=== PATIENT | male | born 1960 | race Caucasian/White ===

== ENCOUNTER 2018-02-24 15:17 | Observation (INO) | payer SELFPAY ==
[2018-02-24] MEDS ORDERED: ASPIRIN 325 MG TABLET PO ONE (16:07)
--- NOTE | 2018-02-24 16:08 | ER Document Report ---
ED Medical Screen (RME) - General Chief Complaint: Chest Pain Stated Complaint: CHEST PAIN Time Seen by Provider: 02/24/18 16:06 Mode of Arrival: Wheelchair Information source: Patient TRAVEL OUTSIDE OF THE [place] IN LAST 30 DAYS: No - HPI Patient complains to provider of: cp Onset: This afternoon - pt with c/o CP starting earlier today - Related Data Allergies/Adverse Reactions: No Known Allergies Allergy (Unverified 02/24/18 15:18) Physical Exam - Vital signs Vitals: Temp Pulse Resp BP Pulse Ox 98.3 F 120 H 20 143/81 H 99 02/24/18 15:42 02/24/18 15:42 02/24/18 15:42 02/24/18 15:42 02/24/18 15:42 Course - Vital Signs Vital signs: Temp Pulse Resp BP Pulse Ox 98.3 F 120 H 20 143/81 H 99 02/24/18 15:42 02/24/18 15:42 02/24/18 15:42 02/24/18 15:42 02/24/18 15:42
[2018-02-24 17:00] LABS: ABSOLUTE BASOPHILS # (AUTO) 0.1 10^3/uL (0.0-0.2); ABSOLUTE EOSINOPHILS # (AUTO) 0.3 10^3/uL (0.0-0.6); ABSOLUTE LYMPHOCYTES (AUTO) 1.4 10^3/uL (0.5-4.7); ABSOLUTE MONOCYTES (AUTO) 0.6 10^3/uL (0.1-1.4); ABSOLUTE NEUT (AUTO) 5.7 10^3/uL (1.7-8.2); BASOPHILS % (AUTO) 1.1 % (0-2); EOSINOPHILS % (AUTO) 3.2 % (0-6); HEMATOCRIT 45.7 % (37.9-51.0); HEMOGLOBIN 16.2 g/dL (13.5-17.0); LYMPHOCYTES % (AUTO) 17.4 % (13-45); MEAN CORPUSCULAR HEMOGLOBIN 36.3 pg (27.0-33.4); MEAN CORPUSCULAR HGB CONC 35.5 g/dL (32.0-36.0); MEAN CORPUSCULAR VOLUME 102 fl (80-97); MONOCYTES % (AUTO) 7.9 % (3-13); PLATELET COUNT 339 10^3/uL (150-450); RED BLOOD COUNT 4.47 10^6/uL (4.35-5.55); RED CELL DISTRIBUTION WIDTH 13.6 % (11.5-14.0); SEGMENTED NEUTROPHILS % (AUTO) 70.4 % (42-78); TOTAL CELLS COUNTED % (AUTO) 100 %; WHITE BLOOD COUNT 8.2 10^3/uL (4.0-10.5)
[2018-02-24 17:22] LABS: ALANINE AMINOTRANSFERASE 26 U/L (21-72); ALBUMIN 4.4 g/dL (3.5-5.0); ALKALINE PHOSPHATASE 119 U/L (38-126); ANION GAP 9 (5-19); ASPARTATE AMINO TRANSFERASE 22 U/L (17-59); BILIRUBIN,DIRECT 0.4 mg/dL (0.0-0.4); BILIRUBIN,TOTAL 0.5 mg/dL (0.2-1.3); BLOOD UREA NITROGEN 9 mg/dL (7-20); CALCIUM 9.8 mg/dL (8.4-10.2); CARBON DIOXIDE 28 mmol/L (22-30); CHLORIDE 103 mmol/L (98-107); CREATINE KINASE 33 U/L (55-170); GLUCOSE 83 mg/dL (75-110); POTASSIUM 4.7 mmol/L (3.6-5.0); TOTAL PROTEIN 7.3 g/dL (6.3-8.2)
--- NOTE | 2018-02-24 17:32 | RADIOLOGY REPORT (SQ) ---
EXAM DESCRIPTION: CHEST 2 VIEWS COMPLETED DATE/TIME: 02/24/2018 5:06 pm REASON FOR STUDY: cp COMPARISON: None. EXAM PARAMETERS: NUMBER OF VIEWS: two views TECHNIQUE: Digital Frontal and Lateral radiographic views of the chest acquired. RADIATION DOSE: NA LIMITATIONS: none FINDINGS: LUNGS AND PLEURA: No opacities, masses or pneumothorax. No pleural effusion. MEDIASTINUM AND HILAR STRUCTURES: No masses or contour abnormalities. HEART AND VASCULAR STRUCTURES: Heart normal size. No evidence for failure. BONES: No acute findings. HARDWARE: None in the chest. OTHER: No other significant finding. IMPRESSION: NO ACUTE RADIOGRAPHIC FINDING IN THE CHEST. TECHNICAL DOCUMENTATION: JOB ID: [id number] [employer]- All Rights Reserved Reading location - IP/workstation name: [email or web address]
[2018-02-24 17:34] LABS: CREATINE KINASE MB 0.92 ng/mL (<4.55)
[2018-02-24 17:35] LABS: TROPONIN I < 0.012 ng/mL
[2018-02-24] MEDS ORDERED: KETOROLAC TROMETHAMINE INJ/PF 30 MG/1 ML SDV IV ONE (18:48)
[2018-02-24] MEDS ORDERED: NORMAL SALINE 1000 ML 1,000 ML IV ONE (18:48)
[2018-02-24] MEDS ORDERED: CEFTRIAXONE INJ 1000 MG VIAL IV ONE (18:48)
--- NOTE | 2018-02-24 19:00 | ER Document Report ---
ED General - General Chief Complaint: Chest Pain Stated Complaint: CHEST PAIN Time Seen by Provider: 02/24/18 16:06 Mode of Arrival: Wheelchair Notes: Patient is a 57-year-old male with a past medical history of tobacco use, prior gouty arthritis, hypertension who presents with multiple complaints. His first complaint is about 3 days of intermittent chest discomfort. Does describe this as a stabbing, aching pain to the central chest. Nothing improves or worsens that pain. Denies a history of similar pains in the past. No history of cardiac illness, DVT or pulmonary embolus. He has had multiple negative stress tests in the past. Denies associated radiation of the pain, nausea, vomiting or shortness of breath. The patient states that his main concern is swelling and pain to his left elbow as well as associated erythema and pain to almost the entirety of the arm. States that this started 5 days ago and has gotten progressively worse. Describes it as a throbbing, aching, constant pain. He notes that he has had some body aches and felt like he had a fever at home but has not recorded a temperature. He has not contacted his general doctor regarding today's concerns. TRAVEL OUTSIDE OF THE [place] IN LAST 30 DAYS: No - Related Data Allergies/Adverse Reactions: CELLOPHANE Allergy (Mild, Uncoded 02/25/18 02:25) Past Medical History - General Information source: Patient - Social History Smoking Status: Current Every Day Smoker Frequency of alcohol use: Rare Drug Abuse: None Lives with: Spouse/Significant other Family History: Reviewed & Not Pertinent Patient has suicidal ideation: No Patient has homicidal ideation: No - Past Medical History Cardiac Medical History: Reports: Hx Hypercholesterolemia, Hx Hypertension Pulmonary Medical History: Reports: Hx Asthma Renal/ Medical History: Denies: Hx Peritoneal Dialysis Past Surgical History: Reports: Hx Orthopedic Surgery - finger amputation Review of Systems - Review of Systems Notes: Constitutional: Negative for fever. HENT: Negative for sore throat. Eyes: Negative for visual changes. Cardiovascular: Positive for chest pain. Respiratory: Negative for shortness of breath. Gastrointestinal: Negative for abdominal pain, vomiting or diarrhea. Genitourinary: Negative for dysuria. Musculoskeletal: Negative for back pain. Skin: Positive for cellulitis and bursitis of the left upper extremity Neurological: Negative for headaches, weakness or numbness. 10 point ROS negative except as marked above and in HPI. Physical Exam - Vital signs Vitals: Temp Pulse Resp BP Pulse Ox 98.3 F 120 H 20 143/81 H 99 02/24/18 15:42 02/24/18 15:42 02/24/18 15:42 02/24/18 15:42 02/24/18 15:42 Interpretation: Hypertensive, Tachycardic Notes: PHYSICAL EXAMINATION: GENERAL: Well-appearing, well-nourished and in no acute distress. HEAD: Atraumatic, normocephalic. EYES: Pupils equal round and reactive to light, extraocular movements intact, sclera anicteric, conjunctiva are normal. ENT: nares patent, oropharynx clear without exudates. Moist mucous membranes. NECK: Normal range of motion, supple without lymphadenopathy LUNGS: Breath sounds clear to auscultation bilaterally and equal. No wheezes rales or rhonchi. HEART: Regular tachycardia without murmurs ABDOMEN: Soft, nontender, normoactive bowel sounds. No guarding, no rebound. No masses appreciated. EXTREMITIES: Patient is unable to fully extend the elbow, is able to flex to approximately 45 degrees. There is notable swelling and fluctuance to the olecranon bursa. NEUROLOGICAL: No focal neurological deficits. Moves all extremities spontaneously and on command. PSYCH: Normal mood, normal affect. SKIN: Warm, Dry, normal turgor, erythema extending from the left axilla down to the left wrist Course - Re-evaluation Re-evalutation: 02/24/18 18:57 Patient presents with a cellulitis extending from his axilla all the way to the wrist on the right with an associated bursitis. It is impossible to rule out a septic joint in this context as the patient has diffuse cellulitis overlying the bursa and his elbow joint making a sterile tap and possible. The patient was quite tachycardic to the 120s at time of arrival consistent with possible sepsis. His labs are notably normal. The patient does have a limited range of motion, unable to fully extend the elbow, able to bend to approximately 45 degrees. I did discuss with Dr. Brown a orthopedic surgeon on-call who has accepted the patient for admission for IV antibiotics and a bursectomy. In regards to the patient's chest pain Low clinical suspicion for ACS given clinical history, exam, EKG without ST elevations or depressions, and negative initial troponin. HEART score less than or equal to 3. PE also seems unlikely given clinical history, absence of pleuritic discomfort or dyspnea. CXR without evidence of pneumothorax or pneumonia. No widened mediastinum. Aortic dissection also seems unlikely given history, symmetric pulses, CXR, and vitals. Will obtain a second troponin and if this remains normal I believe that the chest pain is likely related to the patient's tachycardia or musculoskeletal in origin. - Vital Signs Vital signs: Temp Pulse Resp BP Pulse Ox 98.0 F 99 16 165/96 H 100 02/24/18 23:14 02/24/18 23:14 02/24/18 23:14 02/24/18 23:14 02/24/18 23:14 - Laboratory Result Diagrams: 02/24/18 16:46 02/24/18 16:46 Laboratory results interpreted by me: 02/24/18 02/24/18 16:46 16:46 MCV 102 H MCH 36.3 H Creatine Kinase 33 L - Diagnostic Test Radiology reviewed: Image reviewed, Reports reviewed Radiology results interpreted by me: 02/24/18 18:59 Chest x-ray: No acute infiltrate or pneumothorax - EKG Interpretation by Me Additional EKG results interpreted by me: 02/24/18 18:59 Sinus tachycardia. Rate 125. No ST elevations or depressions. QTC is 450. Discharge - Discharge Clinical Impression: Left arm cellulitis, Olecranon bursitis, left elbow, Chest discomfort Condition: Fair Disposition: ADMITTED INPATIENT Admitting Provider: Surgicalist Unit Admitted: Surgical Floor
--- NOTE | 2018-02-24 22:38 | EKG REPORT ---
SEVERITY:- ABNORMAL ECG - SINUS TACHYCARDIA LEFT ATRIAL ABNORMALITY : Confirmed by: Pari Teresa MD 24-Feb-2018 22:37:33
[2018-02-24] MEDS ORDERED: DEXTROSE 40% GEL 15 GM TUBE PO PRN ×2 (23:24)
[2018-02-24] MEDS ORDERED: GLUCAGON,HUMAN RECOMB 1 MG INJ SUBCUT PRN (23:24)
[2018-02-24] MEDS ORDERED: DEXTROSE 50%-WATER 25 GM/50 ML DISP.SYRIN IV PRN ×2 (23:24)
[2018-02-24] MEDS ORDERED: ONDANSETRON HCL INJ/PF 4 MG/2 ML SDV IV PRN (23:26)
[2018-02-24] MEDS ORDERED: MORPHINE SULFATE 10 MG/ML INJ IV PRN (23:27)
[2018-02-24] MEDS ORDERED: RINGERS SOLUTION,LACTATED 1,000 ML IV PRN (23:27)
[2018-02-25] MEDS: HYDRALAZINE HCL INJ/PF 20 MG/1 ML SDV IV PRN ×2 (00:02→08:26)
[2018-02-25] MEDS ORDERED: HYDROCHLOROTHIAZIDE 25 MG TABLET PO ONE (05:30)
--- NOTE | 2018-02-25 05:53 | PDOC CONSULTATION ---
Consultation Consult Date: 02/25/18 Attending physician:: BRITTANY DURHAM Consult reason:: Hypertension History of Present Illness Admission Date/PCP: 02/24/18 19:27 Patient complains of: Left elbow pain, hypertension History of Present Illness: DRU EARL is a 57 year old male admitted by orthopedic surgery for the left elbow. Patient is found to have uncontrolled hypertension and reveals a history of known but untreated hypertension, chronic pancreatitis, tobacco and alcohol dependence. He denies headache, blurred vision, shortness of breath, chest pain, nausea vomiting. his systolic pressure is 165 at the greatest. Past Medical History Cardiac Medical History: Reports: Hyperlipidema, Hypertension Pulmonary Medical History: Reports: Asthma Psychiatric Medical History: Reports: Alcohol Dependency, Tobacco Dependency Past Surgical History Past Surgical History: Reports: Orthopedic Surgery - finger amputation Social History Information Source: Patient Lives with: Spouse/Significant other Smoking Status: Current Every Day Smoker Cigarettes Packs Per Day: 1 Number of Years Smokin Last Time Smoked: 1200 Frequency of Alcohol Use: Occasional Hx Recreational Drug Use: No Drugs: None Hx Prescription Drug Abuse: No - Advance Directive Resuscitation Status: Full Code Family History Family History: Other - Alcohol dependence and parents Parental Family History Reviewed: Yes Children Family History Reviewed: Yes Sibling(s) Family History Reviewed.: Yes Medication/Allergy Home Medications: No Home Medications 02/24/18 Allergies/Adverse Reactions: CELLOPHANE Allergy (Mild, Uncoded 02/25/18 02:25) Review of Systems Constitutional: ABSENT: chills, fever(s), headache(s), weight gain, weight loss Eyes: ABSENT: visual disturbances Ears: ABSENT: hearing changes Cardiovascular: ABSENT: chest pain, dyspnea on exertion, edema, orthropnea, palpitations Respiratory: ABSENT: cough, hemoptysis Gastrointestinal: ABSENT: abdominal pain, constipation, diarrhea, hematemesis, hematochezia, nausea, vomiting Genitourinary: ABSENT: dysuria, hematuria Musculoskeletal: ABSENT: joint swelling Integumentary: ABSENT: rash, wounds Neurological: ABSENT: abnormal gait, abnormal speech, confusion, dizziness, focal weakness, syncope Psychiatric: ABSENT: anxiety, depression, homidical ideation, suicidal ideation Endocrine: ABSENT: cold intolerance, heat intolerance, polydipsia, polyuria Hematologic/Lymphatic: ABSENT: easy bleeding, easy bruising Physical Exam Vital Signs: Temp Pulse Resp BP Pulse Ox 98.0 F 99 16 165/96 H 100 02/24/18 23:14 02/24/18 23:14 02/24/18 23:14 02/25/18 04:00 02/24/18 23:14 Intake & Output 02/23/18 02/24/18 02/25/18 11:59 11:59 11:59 Intake Total 1000 Balance 1000 Weight 77.8 kg General appearance: PRESENT: no acute distress, well-developed, well-nourished Head exam: PRESENT: atraumatic, normocephalic Eye exam: PRESENT: conjunctiva pink, EOMI, PERRLA. ABSENT: scleral icterus Ear exam: PRESENT: normal external ear exam Mouth exam: PRESENT: moist, tongue midline Neck exam: ABSENT: carotid bruit, JVD, lymphadenopathy, thyromegaly Respiratory exam: PRESENT: clear to auscultation maty. ABSENT: rales, rhonchi, wheezes Cardiovascular exam: PRESENT: RRR. ABSENT: diastolic murmur, rubs, systolic murmur Pulses: PRESENT: normal dorsalis pedis pul Vascular exam: PRESENT: normal capillary refill GI/Abdominal exam: PRESENT: normal bowel sounds, soft. ABSENT: distended, guarding, mass, organolmegaly, rebound, tenderness Rectal exam: PRESENT: deferred Extremities exam: PRESENT: full ROM, joint swelling, tenderness - Left elbow. ABSENT: calf tenderness, clubbing, pedal edema Musculoskeletal exam: ABSENT: full ROM - Limited by pain and swelling on the left elbow Neurological exam: PRESENT: alert, awake, oriented to person, oriented to place , oriented to time, oriented to situation, CN II-XII grossly intact. ABSENT: motor sensory deficit Psychiatric exam: PRESENT: appropriate affect, normal mood. ABSENT: homicidal ideation, suicidal ideation Skin exam: PRESENT: dry, intact, warm. ABSENT: cyanosis, rash Results Impressions: Chest X-Ray 02/24/18 16:07 IMPRESSION: NO ACUTE RADIOGRAPHIC FINDING IN THE CHEST. Assessment & Plan - Diagnosis (1) Hypertension Is this a current diagnosis for this admission?: Yes Plan: Initiate hydrochlorothiazide, hydralazine as needed, education and lifestyle modification. (2) Chronic pancreatitis Is this a current diagnosis for this admission?: Yes Plan: Secondary to alcohol use, alcohol avoidance (3) Chest discomfort Is this a current diagnosis for this admission?: Yes Plan: Clarified to epigastric stent with chronic pancreatitis. Alcohol avoidance, symptomatic management (4) Alcohol dependency Is this a current diagnosis for this admission?: Yes Plan: Thiamine and folate, benzodiazepine as needed, no history of withdrawal (5) Tobacco dependence Is this a current diagnosis for this admission?: Yes Plan: Tobacco Dependence patient received tobacco cessation counseling and offered nicotine replacement options - Time Time Spent: 30 to 50 Minutes
[2018-02-25] MEDS ORDERED: FOLIC ACID 1 MG TABLET PO ONE (06:15)
[2018-02-25 06:36] LABS: HEMATOCRIT 41.3 % (37.9-51.0); HEMOGLOBIN 14.2 g/dL (13.5-17.0); MEAN CORPUSCULAR HEMOGLOBIN 35.3 pg (27.0-33.4); MEAN CORPUSCULAR HGB CONC 34.3 g/dL (32.0-36.0); MEAN CORPUSCULAR VOLUME 103 fl (80-97); PLATELET COUNT 277 10^3/uL (150-450); RED BLOOD COUNT 4.01 10^6/uL (4.35-5.55); RED CELL DISTRIBUTION WIDTH 14.2 % (11.5-14.0); WHITE BLOOD COUNT 5.9 10^3/uL (4.0-10.5)
[2018-02-25 06:51] LABS: ANION GAP 6 (5-19); BLOOD UREA NITROGEN 7 mg/dL (7-20); CALCIUM 9.3 mg/dL (8.4-10.2); CARBON DIOXIDE 23 mmol/L (22-30); CHLORIDE 110 mmol/L (98-107); GLUCOSE 85 mg/dL (75-110); POTASSIUM 4.1 mmol/L (3.6-5.0); SODIUM 139.1 mmol/L (137-145)
[2018-02-25 06:58] LABS: ABSOLUTE MONOCYTES # (MANUAL) 0.8 10^3/uL (0.1-1.4); ABSOLUTE NEUTROPHILS# (MANUAL) 3.5 10^3/uL (1.7-8.2); BASOPHILS % (MANUAL) 0 % (0-2); EOSINOPHILS % (MANUAL) 9 % (0-6); LYMPHOCYTES % (MANUAL) 17 % (13-45); MONOCYTES % (MANUAL) 14 % (3-13); PLATELET COMMENT ADEQUATE; RBC MORPHOLOGY COMMENT NORMO-CYTIC/CHROMIC; SEGMENTED NEUTROPHILS % (MAN) 60 % (42-78); TOTAL CELLS COUNTED 100; TOXIC VACUOLATION PRESENT
[2018-02-25] MEDS ORDERED: THIAMINE HCL 100 MG TABLET PO ONE (07:00)
[2018-02-25] MEDS ORDERED: VANCOMYCIN HCL INJ 1000 MG VIAL ONE (08:02)
[2018-02-25] MEDS ORDERED: BUPIVACAINE HCL 0.5 % INJ/PF 30 ML SDV ONE (08:02)
[2018-02-25] MEDS ORDERED: IPRATROPIUM/ALBUTEROL 0.5-2.5 MG/3 ML AMPUL NEB ONE (08:10)
[2018-02-25] MEDS ORDERED: HYDROMORPHONE HCL INJ/PF 2 MG/ML AMPULE ONE (08:48)
[2018-02-25] MEDS ORDERED: PROPOFOL INJ 200 MG/20 ML VIAL IV ONE (08:49)
[2018-02-25] MEDS ORDERED: FENTANYL CITRATE INJ/PF 100 MCG/2 ML AMPUL ONE (08:49)
[2018-02-25] MEDS ORDERED: MIDAZOLAM 2 MG/2 ML INJ ONE (08:49)
[2018-02-25] MEDS ORDERED: EPHEDRINE SULFATE INJ 50 MG/1 ML AMPULE ONE (08:49)
[2018-02-25] MEDS ORDERED: MEPERIDINE HCL/PF INJ 25 MG/1 ML DISP.SYRIN IV PRN (09:31)
[2018-02-25] MEDS ORDERED: DIPHENHYDRAMINE HCL 50 MG/ML VIAL IV PRN (09:31)
[2018-02-25] MEDS ORDERED: FENTANYL CITRATE INJ/PF 100 MCG/2 ML AMPUL IV PRN ×3 (09:31)
[2018-02-25] MEDS ORDERED: ONDANSETRON HCL INJ/PF 4 MG/2 ML SDV IV PRN (09:31)
--- NOTE | 2018-02-25 09:33 | EKG REPORT ---
SEVERITY:- BORDERLINE ECG - SINUS RHYTHM PROBABLE LEFT ATRIAL ABNORMALITY : Confirmed by: Pari Teresa MD 25-Feb-2018 09:32:47
[2018-02-25] MEDS ORDERED: OXYCODONE-ACETAMINOPHEN 5-325 MG TABLET PO PRN (11:01)
--- NOTE | 2018-02-25 11:18 | PDOC H&P ---
History of Present Illness Admission Date/PCP: 02/24/18 19:27 Patient complains of: Left elbow infection History of Present Illness: DRU EARL is a 57 year old male with left elbow swelling and pain and redness for last 5 days to the point that he started developed some low-grade fever. Denies any numbness or tingling or paresthesias. Denies any injuries or cuts. No previous infection surgery or trauma to the left upper extremity. Does have history of Dupuytren's contracture of the hand. Past Medical History Cardiac Medical History: Reports: Hyperlipidema, Hypertension Pulmonary Medical History: Reports: Asthma Psychiatric Medical History: Reports: Alcohol Dependency, Tobacco Dependency Past Surgical History Past Surgical History: Reports: Orthopedic Surgery - finger amputation Social History Lives with: Spouse/Significant other Smoking Status: Current Every Day Smoker Cigarettes Packs Per Day: 1 Number of Years Smokin Last Time Smoked: 1200 Frequency of Alcohol Use: Occasional Hx Recreational Drug Use: No Drugs: None Hx Prescription Drug Abuse: No - Advance Directive Resuscitation Status: Full Code Family History Family History: Other - Alcohol dependence and parents Parental Family History Reviewed: No Children Family History Reviewed: No Sibling(s) Family History Reviewed.: No Medication/Allergy Home Medications: No Home Medications 02/24/18 Allergies/Adverse Reactions: CELLOPHANE Allergy (Mild, Uncoded 02/25/18 02:25) Review of Systems Review of Systems: Constitutional: [PRESENT: as per HPI. ABSENT: chills, headache(s), weight gain , weight loss] Eyes: [ABSENT: visual disturbances] Ears: [ABSENT: hearing changes] Cardiovascular: [ABSENT: chest pain, dyspnea on exertion, edema, orthropnea, palpitations] Respiratory: [ABSENT: cough, hemoptysis] Gastrointestinal: [ABSENT: abdominal pain, constipation, diarrhea, hematemesis, hematochezia, nausea, vomiting] Genitourinary: [ABSENT: dysuria, hematuria] Musculoskeletal: See HPI Integumentary: [ABSENT: rash, wounds] Neurological: [ABSENT: abnormal gait, abnormal speech, confusion, dizziness, focal weakness, syncope] Psychiatric: [ABSENT: anxiety, depression, homicidal ideation, suicidal ideation ] Endocrine: [ABSENT: cold intolerance, heat intolerance, menstrual abnormalities , polydipsia, polyuria] Hematologic/Lymphatic: [ABSENT: easy bleeding, easy bruising, lymphadenopathy] Physical Exam Vital Signs: Temp Pulse Resp BP Pulse Ox 36.5 C 104 H 16 137/75 H 96 02/25/18 10:26 02/25/18 10:26 02/25/18 10:26 02/25/18 10:26 02/25/18 10:26 Intake & Output 02/24/18 02/25/18 02/26/18 06:59 06:59 06:59 Intake Total 1000 500 Output Total 10 Balance 1000 490 Weight 77.8 kg General appearance: PRESENT: no acute distress Eye exam: PRESENT: EOMI. ABSENT: nystagmus Respiratory exam: PRESENT: symmetrical, unlabored Cardiovascular exam: PRESENT: tachycardia Pulses: PRESENT: normal radial pulses Vascular exam: PRESENT: normal capillary refill GI/Abdominal exam: PRESENT: soft. ABSENT: rebound, rigid, tenderness Neurological exam: PRESENT: alert, awake, oriented to person, oriented to place , oriented to time, oriented to situation Psychiatric exam: PRESENT: appropriate affect, normal mood Adult Front & Back Image: 1 - Erythema and cellulitis of the left arm on the dorsal aspect of the forearm all way up to the proximal aspect of the arm just short of the armpit. Fluid of fluctuance in the olecranon bursa with tenderness to palpation. No drainage. Neurovascular intact distally. Noticeable Dupuytren's of the small finger with contracture. Amputation of the one digit. Results Laboratory Results: 02/25/18 06:13 02/25/18 06:13 02/25/18 02/25/18 02/25/18 06:13 06:13 06:13 WBC 5.9 RBC 4.01 L Hgb 14.2 Hct 41.3 MCV 103 H MCH 35.3 H MCHC 34.3 RDW 14.2 H Plt Count 277 Seg Neutrophils % Not Reportable Lymphocytes % Not Reportable Monocytes % Not Reportable Eosinophils % Not Reportable Basophils % Not Reportable Absolute Neutrophils Not Reportable Absolute Lymphocytes Not Reportable Absolute Monocytes Not Reportable Absolute Eosinophils Not Reportable Absolute Basophils Not Reportable Sodium 139.1 Potassium 4.1 Chloride 110 H Carbon Dioxide 23 Anion Gap 6 BUN 7 Creatinine 0.62 Est GFR ( Amer) > 60 Est GFR (Non-Af Amer) > 60 Glucose 85 Calcium 9.3 Lipase 117.9 Impressions: Chest X-Ray 02/24/18 16:07 IMPRESSION: NO ACUTE RADIOGRAPHIC FINDING IN THE CHEST. Status: Image reviewed by me Assessment & Plan - Diagnosis (1) Left arm cellulitis Is this a current diagnosis for this admission?: Yes (2) Olecranon bursitis, left elbow Is this a current diagnosis for this admission?: Yes - Plan Summary Plan Summary: 57-year-old gentleman with infectious olecranon bursitis of the left elbow with a now spreading cellulitis. Patient can be admitted for olecranon bursectomy as well as IV antibiotics. Patient will be placed n.p.o. and likely taken to the OR first thing in the morning.
--- NOTE | 2018-02-25 11:22 | Operative Report ---
Operative Report DATE OF SURGERY: 02/25/18 PREOPERATIVE DIAGNOSIS: Infectious left olecranon bursitis POSTOPERATIVE DIAGNOSIS: Neck infected left olecranon bursitis with probable concomitant gout OPERATION: Incision and drainage and olecranon bursectomy left elbow SURGEON: BRITTANY DURHAM ANESTHESIA: GA TISSUE REMOVED OR ALTERED: Olecranon bursa COMPLICATIONS: None ESTIMATED BLOOD LOSS: Less than 10 mL INTRAOPERATIVE FINDINGS: Patient had fluid in the olecranon bursa with chalky material consistent with gout. PROCEDURE: Patient was brought to the operating room where he was given general anesthetic. In supine position at the arm tourniquet was applied to the left upper extremity. The left upper extremity was prepped and draped in a normal sterile surgical fashion. Timeout was done identifying the left elbow is a correct site. Tourniquet was inflated at 250 mmHg. The arm was placed over a sterile bump and a incision right over the olecranon bursa was done. Immediately fluid was removed from the area that was cloudy in nature but not elmer pus. There was the calcium deposit and chalky material that reminded me of gout. Concern for may be infected gouty arthropathy here. I used Metzenbaum scissors to dissect the bursal layer from the skin layer and 15 blade was used then to resect the bursal tissue that was dissected successfully. Some of the chalky material was also sent for pathology and cultures. Cultures were obtained as well and at this point vancomycin was then given to the patient IV. I use bulb irrigation to then clean the wound completely of all the chalky material and bursal tissue that I could identify. Then proceeded to close the wound using 3-0 nylon. A Afshan quarter inch was applied to allow for drainage. 4 x 4 dressing and ABD pad followed by soft roll and Stephen bandage was applied and then tourniquet was let down. Once the patient was undraped and LMA was removed the patient was taken to PACU in stable condition
--- NOTE | 2018-02-25 14:35 | PDOC PROGRESS REPORT ---
Subjective Progress Note for:: 02/25/18 Subjective:: Patient is now postop, feeling significantly better. He is comfortable. No chest pain or difficulty breathing. No headache or vision changes. His appetite is good. Reason For Visit: LEFT ARM BURSITIS AND CELLULITIS Physical Exam Vital Signs: Temp Pulse Resp BP Pulse Ox 97.7 F 98 16 128/74 H 95 02/25/18 10:41 02/25/18 10:41 02/25/18 10:41 02/25/18 10:41 02/25/18 10:41 Intake & Output 02/24/18 02/25/18 02/26/18 06:59 06:59 06:59 Intake Total 1000 500 Output Total 10 Balance 1000 490 Weight 77.8 kg General appearance: PRESENT: no acute distress, cooperative, well-developed, well-nourished Eye exam: ABSENT: conjunctival injection, scleral icterus Mouth exam: PRESENT: moist Respiratory exam: PRESENT: decreased breath sounds, unlabored. ABSENT: rales, rhonchi, wheezes Cardiovascular exam: PRESENT: RRR. ABSENT: systolic murmur GI/Abdominal exam: PRESENT: normal bowel sounds, soft. ABSENT: distended, tenderness Extremities exam: PRESENT: other - Left elbow wrapped in postop dressing. Clean dry and intact.. ABSENT: pedal edema Psychiatric exam: PRESENT: appropriate affect. ABSENT: anxious Skin exam: PRESENT: dry, intact, warm Results Laboratory Results: 02/25/18 06:13 02/25/18 06:13 02/25/18 02/25/18 02/25/18 06:13 06:13 06:13 WBC 5.9 RBC 4.01 L Hgb 14.2 Hct 41.3 MCV 103 H MCH 35.3 H MCHC 34.3 RDW 14.2 H Plt Count 277 Seg Neutrophils % Not Reportable Lymphocytes % Not Reportable Monocytes % Not Reportable Eosinophils % Not Reportable Basophils % Not Reportable Absolute Neutrophils Not Reportable Absolute Lymphocytes Not Reportable Absolute Monocytes Not Reportable Absolute Eosinophils Not Reportable Absolute Basophils Not Reportable Sodium 139.1 Potassium 4.1 Chloride 110 H Carbon Dioxide 23 Anion Gap 6 BUN 7 Creatinine 0.62 Est GFR ( Amer) > 60 Est GFR (Non-Af Amer) > 60 Glucose 85 Calcium 9.3 Lipase 117.9 Impressions: Chest X-Ray 02/24/18 16:07 IMPRESSION: NO ACUTE RADIOGRAPHIC FINDING IN THE CHEST. Assessment & Plan - Diagnosis (1) Hypertension Is this a current diagnosis for this admission?: Yes Plan: Patient's blood pressure is currently well controlled. He is now postop. His pain is well controlled and he is on hydro-chlorothiazide as started by night hospitalist, 25 mg daily. We will continue to monitor blood pressure and treat as indicated. (2) Alcohol dependency Is this a current diagnosis for this admission?: Yes Plan: No signs of active alcohol withdrawal. No history of alcohol withdrawal. Nurses have been asked to monitor vitals and mental status. We will watch closely for signs and symptoms consistent with drawl and will treat as appropriate. Patient is currently awake alert oriented hemodynamically stable. (3) Chronic pancreatitis Is this a current diagnosis for this admission?: Yes Plan: Probably secondary to alcohol use. Not acute. Will recommend alcohol abstinence. (4) Olecranon bursitis, left elbow Is this a current diagnosis for this admission?: Yes Plan: Has been taken to the OR by the surgeon. Care per surgeon. (5) Tobacco dependence Is this a current diagnosis for this admission?: Yes Plan: Has received tobacco cessation counseling and has been offered nicotine replacement options. We will continue to discuss this with him. - Time Time Spent with patient: 15-24 minutes Medications reviewed and adjusted accordingly: Yes Anticipated discharge: Home - Inpatient Certification Based on my medical assessment, after consideration of the patient's comorbidities, presenting symptoms, or acuity I expect that the services needed warrant INPATIENT care.: Yes I certify that my determination is in accordance with my understanding of Medicare's requirements for reasonable and necessary INPATIENT services [42 CFR 412.3e].: Yes Medical Necessity: Significant Comorbidiites Make Outpatient Treatment Too Risky , Need Close Monitoring Due to Risk of Patient Decompensation, Risk of Complication if Not Cared For in Hospital
[2018-02-25] MEDS: VANCOMYCIN HCL 1,000 MG in DEXTROSE 5%-WATER 250 ML IV SCH ×2 (16:28→21:30)
[2018-02-26] MEDS: VANCOMYCIN HCL 1,000 MG in DEXTROSE 5%-WATER 250 ML IV SCH ×2 (05:07→14:18)
[2018-02-26 06:46] LABS: ANION GAP 9 (5-19); BLOOD UREA NITROGEN 6 mg/dL (7-20); CALCIUM 9.3 mg/dL (8.4-10.2); CARBON DIOXIDE 22 mmol/L (22-30); CHLORIDE 106 mmol/L (98-107); GLUCOSE 103 mg/dL (75-110); POTASSIUM 4.3 mmol/L (3.6-5.0); SODIUM 136.8 mmol/L (137-145)
[2018-02-26] MEDS: HYDRALAZINE HCL INJ/PF 20 MG/1 ML SDV IV PRN (07:40)
[2018-02-26] MEDS ORDERED: THIAMINE HCL 100 MG TABLET PO SCH (10:00)
[2018-02-26] MEDS ORDERED: FOLIC ACID 1 MG TABLET PO SCH (10:00)
[2018-02-26] MEDS ORDERED: HYDROCHLOROTHIAZIDE 25 MG TABLET PO SCH (10:00)
[2018-02-26] MEDS ORDERED: LISINOPRIL 10 MG TABLET PO SCH ×2 (10:00→10:31)
[2018-02-26] MEDS ORDERED: LISINOPRIL 10 MG TABLET PO ONE (10:30)
--- NOTE | 2018-02-26 12:35 | PDOC DISCHARGE SUMMARY ---
General - Admit/Disc Date/PCP Admission Date/Primary Care Provider: 02/24/18 19:27 Discharge Date: 02/26/18 - Discharge Diagnosis (1) Left arm cellulitis Is this a current diagnosis for this admission?: Yes (2) Olecranon bursitis, left elbow Is this a current diagnosis for this admission?: Yes - Additional Information Resuscitation Status: Full Code Prescriptions: Hydrochlorothiazide [Hydrodiuril 25 mg Tablet] 25 mg PO DAILY 30 Days #30 tablet Lisinopril [Prinivil 10 mg Tablet] 40 mg PO DAILY 30 Days #30 tablet Home Medications: Hydrochlorothiazide [Hydrodiuril 25 mg Tablet] 25 mg PO DAILY 30 Days #30 tablet 02/26/18 Lisinopril [Prinivil 10 mg Tablet] 40 mg PO DAILY 30 Days #30 tablet 02/26/18 History of Present Illness Patient complains of: Left arm infection History of Present Illness: 57-year-old gentleman with 5 days worth of increasing erythema and fluid collection in the left elbow. The patient was admitted for diagnosis of olecranon bursitis with left infectious with concomitant cellulitis. Patient the following day then went underwent irrigation debridement and excision of the bursal tissue. Patient was placed on IV antibiotics and the erythema had involved in patient's pain improved. Patient was afebrile. On postop day 1 dressing was removed and the [place] was removed and there was no purulent drainage. Discussed the findings with the patient he admits to having gout in the past but because he has no insurance is not taking medications. He is also having high blood pressure which she does not have any medication for because he has no insurance. Patient was prescribed antibiotics and indomethacin at discharge for an infected gouty arthropathy. Patient instructed to follow-up in 7-10 days in our office for suture removal. Hospital Course Hospital Course: 57-year-old gentleman with 5 days worth of increasing erythema and fluid collection in the left elbow. The patient was admitted for diagnosis of olecranon bursitis with left infectious with concomitant cellulitis. Patient the following day then went underwent irrigation debridement and excision of the bursal tissue. Patient was placed on IV antibiotics and the erythema had involved in patient's pain improved. Patient was afebrile. On postop day 1 dressing was removed and the [place] was removed and there was no purulent drainage. Discussed the findings with the patient he admits to having gout in the past but because he has no insurance is not taking medications. He is also having high blood pressure which she does not have any medication for because he has no insurance. Patient was prescribed antibiotics and indomethacin at discharge for an infected gouty arthropathy. Patient instructed to follow-up in 7-10 days in our office for suture removal. Physical Exam Vital Signs: Temp Pulse Resp BP Pulse Ox 36.9 C 92 16 188/109 H 99 02/26/18 07:27 02/26/18 07:27 02/26/18 07:27 02/26/18 07:27 02/26/18 07:27 Intake & Output 02/25/18 02/26/18 02/27/18 06:59 06:59 06:59 Intake Total 1000 3320 Output Total 460 Balance 1000 2860 Weight 77.8 kg 78.5 kg General appearance: PRESENT: no acute distress Eye exam: PRESENT: EOMI. ABSENT: nystagmus Adult Front & Back Image: 1 - Sutures are dry clean and intact. Erythema is significantly improved and range of motion is intact. Only serosanguineous drainage from the Afshan that was removed. Neurovascular intact distally Results Laboratory Results: 02/25/18 06:13 02/26/18 05:44 02/26/18 05:44 Sodium 136.8 L Potassium 4.3 Chloride 106 Carbon Dioxide 22 Anion Gap 9 BUN 6 L Creatinine 0.71 Est GFR ( Amer) > 60 Est GFR (Non-Af Amer) > 60 Glucose 103 Calcium 9.3 Impressions: Chest X-Ray 02/24/18 16:07 IMPRESSION: NO ACUTE RADIOGRAPHIC FINDING IN THE CHEST. Status: Image reviewed by me Qualifiers - * PATIENT BEING DISCHARGED WITH ANY OF THE FOLLOWING DIAGNOSIS: No Plan Discharge Plan: 57-year-old gentleman being discharged on p.o. Bactrim and indomethacin for infectious olecranon bursitis secondary to gout. Cellulitis and bursitis has resolved with IV antibiotics and will be transition to p.o. Also at this diagnosis he had hypertension that required hospitalist intervention to manage. He is well aware that he will need evaluation and medication for his hypertension but the patient' is self-pay and unable to buy medications. Told him I did still see him in 7-10 days for wound check and suture removal.
[2018-02-26 13:17] VITALS: BP 151/84
[2018-02-26 14:41] LABS: VANCOMYCIN,TROUGH 15.2 ug/mL (5.0-20.0)
--- NOTE | 2018-02-26 15:10 | PDOC PROGRESS REPORT ---
Subjective Progress Note for:: 02/26/18 Subjective:: Pt is feeling good today. No headache or vision changes. Appetite is good. Left elbow is sore post operatively. He is not having any bowel or bladder complaints. No fevers or chills. No shortness of breath or chest pain. Patient tells me that he has recently moved here from the [place]. He does not yet have a primary care doctor. For many years he has been prescribed antihypertensives but has not taken them because he does not have insurance to cover medications. Talked about the possibility of him getting assistance through a medication assistance program with the hospital. Case management has been consulted and he agrees with that. Reason For Visit: LEFT ARM BURSITIS AND CELLULITIS Physical Exam Vital Signs: Temp Pulse Resp BP Pulse Ox 98.4 F 111 H 14 151/84 H 99 02/26/18 12:00 02/26/18 12:00 02/26/18 12:00 02/26/18 12:00 02/26/18 12:00 Intake & Output 02/25/18 02/26/18 02/27/18 06:59 06:59 06:59 Intake Total 1000 3320 Output Total 460 Balance 1000 2860 Weight 77.8 kg 78.5 kg General appearance: PRESENT: no acute distress, cooperative Head exam: PRESENT: atraumatic, normocephalic Eye exam: ABSENT: conjunctival injection, scleral icterus Mouth exam: PRESENT: moist, neck supple, tongue midline Respiratory exam: PRESENT: clear to auscultation maty, unlabored. ABSENT: rales , rhonchi, wheezes Cardiovascular exam: PRESENT: RRR GI/Abdominal exam: PRESENT: normal bowel sounds, soft. ABSENT: distended, tenderness Neurological exam: PRESENT: alert, awake, oriented to person, oriented to place , oriented to situation, CN II-XII grossly intact Skin exam: PRESENT: dry, intact, warm, other - Eft elbow postop dressing clean dry and intact, no surrounding cellulitis Results Laboratory Results: 02/25/18 06:13 02/26/18 13:45 02/26/18 02/26/18 05:44 13:45 Sodium 136.8 L Potassium 4.3 Chloride 106 Carbon Dioxide 22 Anion Gap 9 BUN 6 L Creatinine 0.71 0.67 Est GFR ( Amer) > 60 > 60 Est GFR (Non-Af Amer) > 60 > 60 Glucose 103 Calcium 9.3 Impressions: Chest X-Ray 02/24/18 16:07 IMPRESSION: NO ACUTE RADIOGRAPHIC FINDING IN THE CHEST. Assessment & Plan - Diagnosis (1) Hypertension Is this a current diagnosis for this admission?: Yes Plan: Per patient this has been poorly controlled for many years. We have started him on hydrochlorothiazide 25 mg daily and lisinopril 40 mg daily. He has been given prescriptions to be used on discharge. Strongly recommend new primary care physician follow-up SHAYNE. cAse management consulted to assist. (2) Chronic pancreatitis Qualifiers: Pancreatitis type: alcohol induced Qualified Code(s): K86.0 - Alcohol- induced chronic pancreatitis Is this a current diagnosis for this admission?: Yes Plan: pt aware of complications related to etoh, cessation advised, no evidence of acute pancreatitis (3) Olecranon bursitis, left elbow Is this a current diagnosis for this admission?: Yes Plan: per ortho, pt being DCed (4) Tobacco dependence Is this a current diagnosis for this admission?: Yes Plan: not interested in cessation - Time Time Spent with patient: 25-34 minutes - Inpatient Certification Medical Necessity: Other - pt is being discharged by orthopedic
[2018-02-27] MEDS ORDERED: LISINOPRIL 10 MG TABLET PO SCH (10:00)
== END 2018-02-26 16:31 | disposition home or self-care (01) ==
LOC: ER 15:17 → EH 19:27 → INTOOBSV 19:27 → 5 22:39
PROVIDERS: ADMIT Orthopaedic Surgery; ATTEND Orthopaedic Surgery
PROC: 0MB40ZZ Excision of Left Elbow Bursa and Ligament, Open Approach (ICD-10-PCS; 2018-02-25)
PROC: 3E02340 Introduction of Influenza Vaccine into Muscle, Percutaneous Approach (ICD-10-PCS; principal; 2018-02-26)
DX: L03.114 Cellulitis of left upper limb (principal); M70.22 Olecranon bursitis, left elbow; K86.0 Alcohol-induced chronic pancreatitis; F10.20 Alcohol dependence, uncomplicated; I10 Essential (primary) hypertension; R00.0 Tachycardia, unspecified; F17.210 Nicotine dependence, cigarettes, uncomplicated; M72.0 Palmar fascial fibromatosis [Dupuytren]; R07.89 Other chest pain; Z79.899 Other long term (current) drug therapy; Z59.8 Other problems related to housing and economic circumstances; Z81.1 Family history of alcohol abuse and dependence; Z23 Encounter for immunization; Z89.029 Acquired absence of unspecified finger(s)
CPT/HCPCS: 24105; 93005 ×2; 99285; 36415 ×3; 87070; 87205; 82553; 82550; 82565; 83690; 85025 ×2; 87075; 80048 ×2; 80053; 84484; 80202; 88304 ×2; 71046; 90686; 93010 ×2; G0378 ×3; G0008; J2250; J3490 ×2; J3010; J0360 ×2; J1885; J2270; J1170; J0696; J7060 ×2; J7030; J7120; J2704; J3370 ×2; J7620; 1710; 90471

== ENCOUNTER 2018-06-06 22:11 | Emergency (ER) | payer SELFPAY ==
--- NOTE | 2018-06-06 22:51 | RADIOLOGY REPORT (SQ) ---
EXAM DESCRIPTION: XR FOREARM 2 VIEWS COMPLETED DATE/TME: 06/06/2018 22:20 CLINICAL HISTORY: 57 years, Male, SWELLING REDNESS COMPARISON: None. NUMBER OF VIEWS: 2 TECHNIQUE: 2 view right forearm LIMITATIONS: None. FINDINGS: Negative for fracture or dislocation. Mild soft tissue swelling along the dorsal aspect of the forearm and elbow. No soft tissue gas. No radiopaque foreign body. IMPRESSION: Mild posterior/dorsal soft tissue swelling. No acute osseous abnormality copyright 2010 [employer]- All Rights Reserved
[2018-06-07 00:43] LABS: ABSOLUTE BASOPHILS # (AUTO) 0.1 10^3/uL (0.0-0.2); ABSOLUTE EOSINOPHILS # (AUTO) 0.2 10^3/uL (0.0-0.6); ABSOLUTE LYMPHOCYTES (AUTO) 1.2 10^3/uL (0.5-4.7); ABSOLUTE MONOCYTES (AUTO) 0.9 10^3/uL (0.1-1.4); ABSOLUTE NEUT (AUTO) 7.5 10^3/uL (1.7-8.2); BASOPHILS % (AUTO) 0.9 % (0-2); EOSINOPHILS % (AUTO) 2.4 % (0-6); HEMATOCRIT 46.7 % (37.9-51.0); HEMOGLOBIN 16.2 g/dL (13.5-17.0); LYMPHOCYTES % (AUTO) 12.3 % (13-45); MEAN CORPUSCULAR HEMOGLOBIN 33.2 pg (27.0-33.4); MEAN CORPUSCULAR HGB CONC 34.6 g/dL (32.0-36.0); MEAN CORPUSCULAR VOLUME 96 fl (80-97); PLATELET COUNT 402 10^3/uL (150-450); RED BLOOD COUNT 4.88 10^6/uL (4.35-5.55); RED CELL DISTRIBUTION WIDTH 12.5 % (11.5-14.0); SEGMENTED NEUTROPHILS % (AUTO) 75.4 % (42-78); TOTAL CELLS COUNTED % (AUTO) 100 %
[2018-06-07 00:55] LABS: ALANINE AMINOTRANSFERASE 26 U/L (21-72); ALBUMIN 5.1 g/dL (3.5-5.0); ALKALINE PHOSPHATASE 140 U/L (38-126); ANION GAP 11 (5-19); ASPARTATE AMINO TRANSFERASE 18 U/L (17-59); BILIRUBIN,DIRECT 0.2 mg/dL (0.0-0.4); BILIRUBIN,TOTAL 0.7 mg/dL (0.2-1.3); BLOOD UREA NITROGEN 14 mg/dL (7-20); CALCIUM 10.5 mg/dL (8.4-10.2); CARBON DIOXIDE 29 mmol/L (22-30); CHLORIDE 100 mmol/L (98-107); GLUCOSE 114 mg/dL (75-110); POTASSIUM 4.7 mmol/L (3.6-5.0); SODIUM 140.2 mmol/L (137-145)
--- NOTE | 2018-06-07 03:31 | ER Document Report ---
ED Extremity Problem, Upper - General Chief Complaint: Arm Pain Stated Complaint: RIGHT ARM PAIN Time Seen by Provider: 06/07/18 02:37 Mode of Arrival: Ambulatory Information source: Patient Notes: Patient is a 57-year-old male with history of both gout and bursitis who presents with pain and swelling to the right elbow and the right wrist. Patient denies injury to his knowledge, no fevers or chills, is right-hand dominant. He reports having "bursitis" in his left elbow several months ago, now he has similar swelling in the right but is not as bad this time, also reports swelling to the right wrist. He reports it feels similar to gout but different, more similar to his bursitis. He denies numbness and tingling of the fingers. TRAVEL OUTSIDE OF THE [place] IN LAST 30 DAYS: No - HPI Patient complains to provider of: Right, Forearm, Wrist Onset: Last week Recent injury: No Quality of pain: Achy, Throbbing Severity of pain: Mild Pain Level: 2 Associated symptoms: None Exacerbated by: Movement Relieved by: Rest, Positioning Similar symptoms previously: No Recently seen / treated by doctor: No - Related Data Allergies/Adverse Reactions: CELLOPHANE Allergy (Mild, Uncoded 02/25/18 02:25) Past Medical History - General Information source: Patient - Social History Smoking Status: Former Smoker Chew tobacco use (# tins/day): No Frequency of alcohol use: None Drug Abuse: None Lives with: Family Family History: Reviewed & Not Pertinent, Other - Alcohol dependence and parents Patient has suicidal ideation: No Patient has homicidal ideation: No - Past Medical History Cardiac Medical History: Reports: Hx Hypercholesterolemia, Hx Hypertension Pulmonary Medical History: Reports: Hx Asthma EENT Medical History: Reports: None Neurological Medical History: Reports: None Endocrine Medical History: Reports: None Renal/ Medical History: Reports: None. Denies: Hx Peritoneal Dialysis Malignancy Medical History: Reports None GI Medical History: Reports: None Musculoskeletal Medical History: Reports None Skin Medical History: Reports None Psychiatric Medical History: Reports: None Traumatic Medical History: Reports: None Infectious Medical History: Reports: None Surgical Hx: Negative Past Surgical History: Reports: None, Hx Orthopedic Surgery - finger amputation, L elbow, L femur - Immunizations Immunizations up to date: Yes Hx Diphtheria, Pertussis, Tetanus Vaccination: Yes Review of Systems - Review of Systems Constitutional: No symptoms reported EENT: No symptoms reported Cardiovascular: No symptoms reported Respiratory: No symptoms reported Gastrointestinal: No symptoms reported Genitourinary: No symptoms reported Male Genitourinary: No symptoms reported Musculoskeletal: See HPI, Gout, Joint pain, Joint swelling Skin: No symptoms reported Hematologic/Lymphatic: No symptoms reported Neurological/Psychological: No symptoms reported -: Yes All other systems reviewed and negative Physical Exam - Vital signs Vitals: Temp Pulse Resp BP Pulse Ox 98.9 F 120 H 16 155/92 H 100 06/06/18 22:47 06/06/18 22:47 06/06/18 22:47 06/06/18 22:47 06/06/18 22:47 Interpretation: Normal - Notes Notes: Well-appearing in no acute distress - General General appearance: Appears well, Alert - HEENT Head: Normocephalic, Atraumatic Eyes: Normal Pupils: PERRL - Respiratory Respiratory status: No respiratory distress Chest status: Nontender Breath sounds: Normal Chest palpation: Normal - Cardiovascular Rhythm: Regular Heart sounds: Normal auscultation Murmur: No - Abdominal Inspection: Normal Distension: No distension Bowel sounds: Normal Tenderness: Nontender Organomegaly: No organomegaly - Rectal Notes: Deferred - Genitourinary Notes: Deferred - Back Back: Normal, Nontender - Extremities General upper extremity: Tender, Edema, Normal temperature, Other - Slight erythema and swelling to the right wrist, normal temperature General lower extremity: Normal inspection, Nontender, Normal color, Normal ROM, Normal temperature, Normal weight bearing. No: Elder's sign - Neurological Neuro grossly intact: Yes Cognition: Normal Orientation: AAOx4 Powell Coma Scale Eye Opening: Spontaneous Powell Coma Scale Verbal: Oriented Powell Coma Scale Motor: Obeys Commands Rubi Coma Scale Total: 15 Speech: Normal Motor strength normal: LUE, RUE, LLE, RLE Sensory: Normal - Psychological Associated symptoms: Normal affect, Normal mood - Skin Skin Temperature: Warm Skin Moisture: Dry Skin Color: Normal Course - Re-evaluation Re-evalutation: 06/07/18 05:54 Normal white blood cell count makes septic arthritis less likely, especially given the overall benign appearance of the wrist. Could represent cellulitis overlying the joint or acute gout flare. As a precaution, patient has been given IV vancomycin and will be discharged home with orthopedic follow-up. He will be given strict return precautions, patient voices understanding and agreeing with the plan. - Vital Signs Vital signs: Temp Pulse Resp BP Pulse Ox 98.9 F 120 H 16 155/92 H 100 06/06/18 22:47 06/06/18 22:47 06/06/18 22:47 06/06/18 22:47 06/06/18 22:47 - Laboratory Result Diagrams: 06/07/18 00:28 06/07/18 00:28 Laboratory results interpreted by me: 06/07/18 06/07/18 00:28 00:28 Lymphocytes % 12.3 L Glucose 114 H Calcium 10.5 H Alkaline Phosphatase 140 H Albumin 5.1 H Discharge - Discharge Clinical Impression: Cellulitis Qualifiers: Site of cellulitis: extremity Site of cellulitis of extremity: upper extremity Laterality: right Qualified Code(s): L03.113 - Cellulitis of right upper limb Condition: Good Disposition: HOME, SELF-CARE Instructions: Cellulitis ([facility]) Additional Instructions: Please follow-up with orthopedic surgery as instructed. Return to the emergency department if you experience high fevers, difficulty moving the right hand, or have any other concerning symptom. Prescriptions: Cephalexin Monohydrate [Keflex 500 mg Capsule] 500 mg PO Q6H 5 Days #40 capsule Hydrocodone/Acetaminophen [[place] 5-325 mg Tablet] 1 tab PO Q6H PRN #20 tablet PRN Reason: Referrals: TIAGO DUVAL DO [ACTIVE STAFF] - Follow up as needed Print Language: Palestinian
[2018-06-07] MEDS ORDERED: VANCOMYCIN HCL INJ 1000 MG VIAL IV ONE (03:52)
[2018-06-07] MEDS ORDERED: MORPHINE SULFATE 10 MG/ML INJ IV ONE (03:52)
[2018-06-07 06:11] VITALS: BP 137/87
== END 2018-06-07 06:35 | disposition home or self-care (01) ==
LOC: ER 22:11
DX: L03.113 Cellulitis of right upper limb (principal); M79.601 Pain in right arm; M25.521 Pain in right elbow; M79.89 Other specified soft tissue disorders; Z87.891 Personal history of nicotine dependence; I10 Essential (primary) hypertension; J45.909 Unspecified asthma, uncomplicated
CPT/HCPCS: 99283; 96375; 96365; 36415; 85025; 80053; 73090; J2270; J3370

== ENCOUNTER 2018-06-08 18:18 | Inpatient (IN) | payer SELFPAY ==
[2018-06-08] MEDS ORDERED: ONDANSETRON 4 MG TAB.RAPDIS PO ONE (20:56)
[2018-06-08] MEDS ORDERED: OXYCODONE-ACETAMINOPHEN 5-325 MG TABLET PO ONE (20:56)
--- NOTE | 2018-06-08 20:58 | ER Document Report ---
ED Medical Screen (RME) - General Chief Complaint: Wrist Pain Stated Complaint: RIGHT WRIST PAIN Time Seen by Provider: 06/08/18 20:56 Notes: 57-year-old male with chief complaint of right wrist pain and swelling. Seen 2 days ago, placed on Keflex for possible cellulitis, states the swelling, redness, and pain is worsened. Denies fever. He does not have diabetes. He does have a history of gout and he has had severe gout in the past. Had an x- ray 2 days ago which was normal reportedly. Denies any injury or wound. TRAVEL OUTSIDE OF THE [place] IN LAST 30 DAYS: No - Related Data Allergies/Adverse Reactions: CELLOPHANE Allergy (Mild, Uncoded 02/25/18 02:25) Past Medical History - Social History Chew tobacco use (# tins/day): No Frequency of alcohol use: None Drug Abuse: None - Past Medical History Cardiac Medical History: Reports: Hx Hypercholesterolemia, Hx Hypertension Pulmonary Medical History: Reports: Hx Asthma Renal/ Medical History: Denies: Hx Peritoneal Dialysis Past Surgical History: Reports: Hx Orthopedic Surgery - finger amputation, L elbow, L femur - Immunizations Immunizations up to date: Yes Hx Diphtheria, Pertussis, Tetanus Vaccination: Yes Physical Exam - Vital signs Vitals: Temp Pulse Resp BP Pulse Ox 99.8 F 114 H 17 145/91 H 96 06/08/18 18:45 06/08/18 18:45 06/08/18 18:45 06/08/18 18:45 06/08/18 18:45 - Extremities General upper extremity: Tender - Tender with erythema and warmth at the right wrist extending to the dorsal hand. Pain with movement of the fingers but range of motion is intact. Normal capillary refill and sensation. Course - Vital Signs Vital signs: Temp Pulse Resp BP Pulse Ox 99.8 F 114 H 17 145/91 H 96 06/08/18 18:45 06/08/18 18:45 06/08/18 18:45 06/08/18 18:45 06/08/18 18:45
[2018-06-08 21:54] LABS: ABSOLUTE EOSINOPHILS # (AUTO) 0.3 10^3/uL (0.0-0.6); ABSOLUTE LYMPHOCYTES (AUTO) 1.2 10^3/uL (0.5-4.7); ABSOLUTE NEUT (AUTO) 7.6 10^3/uL (1.7-8.2); BASOPHILS % (AUTO) 0.3 % (0-2); EOSINOPHILS % (AUTO) 3.3 % (0-6); HEMATOCRIT 42.6 % (37.9-51.0); LYMPHOCYTES % (AUTO) 11.9 % (13-45); MEAN CORPUSCULAR HEMOGLOBIN 33.7 pg (27.0-33.4); MEAN CORPUSCULAR HGB CONC 35.2 g/dL (32.0-36.0); MEAN CORPUSCULAR VOLUME 96 fl (80-97); MONOCYTES % (AUTO) 9.8 % (3-13); PLATELET COUNT 398 10^3/uL (150-450); RED BLOOD COUNT 4.44 10^6/uL (4.35-5.55); RED CELL DISTRIBUTION WIDTH 12.4 % (11.5-14.0); SEGMENTED NEUTROPHILS % (AUTO) 74.7 % (42-78); TOTAL CELLS COUNTED % (AUTO) 100 %; WHITE BLOOD COUNT 10.2 10^3/uL (4.0-10.5)
[2018-06-08 22:10] LABS: ANION GAP 12 (5-19); BLOOD UREA NITROGEN 16 mg/dL (7-20); CALCIUM 10.1 mg/dL (8.4-10.2); CARBON DIOXIDE 27 mmol/L (22-30); CHLORIDE 99 mmol/L (98-107); GLUCOSE 105 mg/dL (75-110); POTASSIUM 5.1 mmol/L (3.6-5.0); SODIUM 138.4 mmol/L (137-145)
[2018-06-08] MEDS ORDERED: VANCOMYCIN HCL INJ 1000 MG VIAL IV ONE (22:11)
[2018-06-08] MEDS ORDERED: CEFTRIAXONE INJ 1000 MG VIAL IV ONE (22:11)
[2018-06-08] MEDS ORDERED: CEFTRIAXONE 1 GM/D5W RTU 1 GM/50 ML RTUPB IV ONE (22:16)
--- NOTE | 2018-06-08 22:16 | ER Document Report ---
ED General - General Chief Complaint: Wrist Pain Stated Complaint: RIGHT WRIST PAIN Time Seen by Provider: 06/08/18 20:56 Notes: Patient is a pleasant 57-year-old male who presents with complaint of redness and pain in the right wrist. He does have history of gout as well as a history of cellulitis. He was seen yesterday in the ER. He was diagnosed as gout versus cellulitis and placed on Keflex. Redness has spread up into the hand and down the arm now. He says his counts point where he cannot move his wrist is very painful. He does have history of previous surgery in his right hand including surgery for Dupuytren's contracture that was performed in the . He no longer drinks alcohol. He does have history of high blood pressure but does not take medications for them and does not follow with a doctor. He has no other concerns or complaints at this time. TRAVEL OUTSIDE OF THE [place] IN LAST 30 DAYS: No - Related Data Allergies/Adverse Reactions: CELLOPHANE Allergy (Mild, Uncoded 02/25/18 02:25) Past Medical History - Social History Smoking Status: Former Smoker Chew tobacco use (# tins/day): No Frequency of alcohol use: None Drug Abuse: None Family History: Reviewed & Not Pertinent, Other - Alcohol dependence and parents Patient has suicidal ideation: No Patient has homicidal ideation: No - Past Medical History Cardiac Medical History: Reports: Hx Hypercholesterolemia, Hx Hypertension Pulmonary Medical History: Reports: Hx Asthma Renal/ Medical History: Denies: Hx Peritoneal Dialysis Past Surgical History: Reports: Hx Orthopedic Surgery - finger amputation, L elbow, L femur - Immunizations Immunizations up to date: Yes Hx Diphtheria, Pertussis, Tetanus Vaccination: Yes Review of Systems - Review of Systems Notes: My Normal Review Basic REVIEW OF SYSTEMS: CONSTITUTIONAL : Subjective fever, chills, or sweats. Denies recent illness. GASTROINTESTINAL: Denies abdominal pain. Denies nausea, vomiting MUSCULOSKELETAL: Right wrist pain and redness. SKIN: Denies rash or skin lesions. NEUROLOGICAL: Denies sensory or motor loss. ALL OTHER SYSTEMS REVIEWED AND NEGATIVE. Physical Exam - Vital signs Vitals: Temp Pulse Resp BP Pulse Ox 99.8 F 114 H 17 145/91 H 96 06/08/18 18:45 06/08/18 18:45 06/08/18 18:45 06/08/18 18:45 06/08/18 18:45 - Notes Notes: General Appearance: Well nourished, alert, cooperative, no acute distress, mild obvious discomfort. Vitals: reviewed, See vital signs table. Eyes: PERRL, EOMI, Conjuctiva clear. Heart: Tachycardic rate, Regular rythm, No murmur, no rub Extremities: Patient has erythema originating in the right wrist and extending up into the dorsum of the right hand and started to streak down the right forearm. The wrist area is very hot to palpation. Patient is keeping the wrist in a slightly flexed position. Patient let me try to put it through range of motion. I am unable to put her through any range of motion at all. Skin: warm, dry, appropriate color, no rash Neuro: speech clear, oriented x 3, normal affect, responds appropriately to questions. Course - Re-evaluation Re-evalutation: 06/08/18 22:15 Based on exam of concern that the patient is septic joint in the right wrist. I did call orthopedist, Dr. Trejo. Informed him of the patient's physical exam presentation. Informed him that he does not have a leukocytosis however still concerned that he is a septic joint based on the fact that he has redness that is spreading, significant warmth to palpation of the wrist, and it is locked in a solid fixed position and I cannot manipulated at all. Dr. Trejo agrees to admit the patient to his service and consider operative treatment in the morning. Dictation of this chart was performed using voice recognition software; therefore, there may be some unintended grammatical errors. 06/08/18 22:31 - Vital Signs Vital signs: Temp Pulse Resp BP Pulse Ox 99.8 F 114 H 17 145/91 H 96 06/08/18 18:45 06/08/18 18:45 06/08/18 18:45 06/08/18 18:45 06/08/18 18:45 - Laboratory Result Diagrams: 06/08/18 19:00 06/08/18 19:00 Laboratory results interpreted by me: 06/08/18 06/08/18 19:00 19:00 MCH 33.7 H Lymphocytes % 11.9 L Potassium 5.1 H Discharge - Discharge Clinical Impression: Septic joint of right wrist Qualifiers: Septic arthritis organism: due to unspecified organism Qualified Code(s): M00.9 - Pyogenic arthritis, unspecified Condition: Stable Disposition: ADMITTED OBSERVATION Admitting Provider: Dr. Trejo Unit Admitted: Surgical Floor
--- NOTE | 2018-06-08 22:52 | RADIOLOGY REPORT (SQ) ---
EXAM DESCRIPTION: XR WRIST 3 OR MORE VIEWS BILATERAL COMPLETED DATE/TME: 06/08/2018 22:15 CLINICAL HISTORY: 57 years, Male, swelling, redness COMPARISON: None. NUMBER OF VIEWS: 3 TECHNIQUE: 3 view right wrist LIMITATIONS: None. FINDINGS: Degenerative changes of the radioulnar joint. Negative for acute fracture or dislocation. Mild diffuse soft tissue swelling. No soft tissue gas. Old fracture of the fifth metacarpal. IMPRESSION: No acute osseous abnormality. Mild soft tissue swelling. Degenerative change copyright 2010 [employer]- All Rights Reserved
[2018-06-08] MEDS ORDERED: VANCOMYCIN HCL INJ 1000 MG VIAL ONE (22:55)
[2018-06-09] MEDS: RINGERS SOLUTION,LACTATED 1,000 ML IV PRN ×2 (03:01→15:42)
[2018-06-09] MEDS: MORPHINE SULFATE 10 MG/ML INJ IV PRN ×5 (03:01→21:18)
[2018-06-09] MEDS ORDERED: VANCOMYCIN HCL 0 MG in DEXTROSE 5%-WATER 250 ML IV NR (07:45)
--- NOTE | 2018-06-09 08:56 | PDOC H&P ---
History of Present Illness Admission Date/PCP: 06/08/18 22:41 History of Present Illness: DRU EARL is a 57 year old male Patient is a 57-year-old white male who presents with complaints of right wrist pain. Pertinent past medical history is notable for a similar episode several years ago which resolved spontaneously. The patient then presented previously to our emergency room 2 days ago with wrist pain and was treated with antibiotics. He returns yesterday with increasing pain and inability to move the wrist either passively or actively. Plan is for admission for concern for an underlying septic pyarthrosis of the right wrist joint. Past Medical History Cardiac Medical History: Reports: Hyperlipidema, Hypertension Pulmonary Medical History: Reports: Asthma Past Surgical History Past Surgical History: Reports: Orthopedic Surgery - finger amputation, L elbow, L femur, Dupuytren's release Social History Information Source: Patient, Relative, [facility] Records Smoking Status: Former Smoker Frequency of Alcohol Use: Occasional Hx Recreational Drug Use: No Drugs: None Hx Prescription Drug Abuse: No Family History Family History: Reviewed & Not Pertinent, Other - Alcohol dependence and parents Parental Family History Reviewed: No Children Family History Reviewed: No Sibling(s) Family History Reviewed.: No Medication/Allergy Home Medications: Hydrochlorothiazide [Hydrodiuril 25 mg Tablet] 25 mg PO DAILY 30 Days #30 tablet 02/26/18 Lisinopril [Prinivil 10 mg Tablet] 40 mg PO DAILY 30 Days #30 tablet 02/26/18 Cephalexin Monohydrate [Keflex 500 mg Capsule] 500 mg PO Q6H 5 Days #40 capsule 06/07/18 Hydrocodone/Acetaminophen [Berlin 5-325 mg Tablet] 1 tab PO Q6H PRN #20 tablet 06/07/18 Allergies/Adverse Reactions: CELLOPHANE Allergy (Mild, Uncoded 02/25/18 02:25) Review of Systems All systems: as per PMH Physical Exam Vital Signs: Temp Pulse Resp BP Pulse Ox 36.9 C 95 16 140/82 H 96 06/09/18 04:28 06/09/18 04:28 06/09/18 04:28 06/09/18 04:28 06/09/18 04:28 Intake & Output 06/08/18 06/09/18 06/10/18 06:59 06:59 06:59 Weight 83.7 kg Physical Exam: Patient is a weathered appearing middle-aged white male lying on [facility]. He is accompanied by his who sits across in the room. Right upper extremity is elevated on a pillow. There is some erythema over the dorsum of the radiocarpal joint extending down to the metacarpal region. There is no axillary or epitrochlear adenopathy. There is tenderness to palpation over the dorsum of the wrist. Passive range of motion in place in a volar and dorsiflexion is painful as is radial and ulnar deviation. Pronation supination is likewise painful. Passive range of motion of the digits is considerably less painful. There is brisk capillary refill to each of the digits. There is a significant Dupuytren's involvement of the small finger. General appearance: PRESENT: mild distress Respiratory exam: PRESENT: unlabored Cardiovascular exam: PRESENT: RRR Vascular exam: PRESENT: normal capillary refill Extremities exam: PRESENT: other - As above Results Laboratory Results: 06/08/18 19:00 06/08/18 19:00 06/08/18 06/08/18 06/08/18 19:00 19:00 19:00 WBC 10.2 RBC 4.44 Hgb 15.0 Hct 42.6 MCV 96 MCH 33.7 H MCHC 35.2 RDW 12.4 Plt Count 398 Seg Neutrophils % 74.7 Lymphocytes % 11.9 L Monocytes % 9.8 Eosinophils % 3.3 Basophils % 0.3 Absolute Neutrophils 7.6 Absolute Lymphocytes 1.2 Absolute Monocytes 1.0 Absolute Eosinophils 0.3 Absolute Basophils 0.0 Sodium 138.4 Potassium 5.1 H Chloride 99 Carbon Dioxide 27 Anion Gap 12 BUN 16 Creatinine 0.95 Est GFR ( Amer) > 60 Est GFR (Non-Af Amer) > 60 Glucose 105 Calcium 10.1 C-Reactive Protein 88.2 H Impressions: Wrist X-Ray 06/08/18 22:15 IMPRESSION: No acute osseous abnormality. Mild soft tissue swelling. Degenerative change copyright 2011 [employer]- All Rights Reserved Status: Imported from PACS Assessment & Plan - Diagnosis (1) Septic joint of right wrist Qualifiers: Septic arthritis organism: due to unspecified organism Qualified Code(s): M00.9 - Pyogenic arthritis, unspecified Plan: 57-year-old white male with an episode of right wrist pain several years ago which cleared spontaneously and now with a several day history of progressive wrist pain and functional disability. This is associated with an elevated sedimentation rate and C-reactive protein. The patient remains afebrile. There is no proximal adenopathy that I can discern. An MRI scan with contrast has been ordered. Dr. Mendoza is aware of the case and will assume the patient's care. - Time Time Spent: 50 to 70 Minutes Anticipated discharge: Home with Homehealth Within: Other
[2018-06-09] MEDS: VANCOMYCIN HCL 1,250 MG in DEXTROSE 5%-WATER 250 ML IV SCH (12:36)
[2018-06-09] MEDS ORDERED: COLCHICINE 0.6 MG TABLET PO ONE (14:35)
[2018-06-09] MEDS: IBUPROFEN 800 MG in NORMAL SALINE 250 ML IV SCH ×2 (15:47→21:49)
--- NOTE | 2018-06-09 17:42 | RADIOLOGY REPORT (SQ) ---
EXAM DESCRIPTION: HAND RIGHT 2 VIEWS COMPLETED DATE/TIME: 06/09/2018 5:29 pm REASON FOR STUDY: CHECK METAL FOR AN MRI COMPARISON: None. EXAM PARAMETERS: NUMBER OF VIEWS: Two views TECHNIQUE: AP and lateral radiographic images acquired of the right hand. LIMITATIONS: None. FINDINGS: MINERALIZATION: Normal. BONES: No fracture or dislocation. The 5th finger is flexed and apparently does not straighten. The re is no trauma to this area. JOINTS: No effusions. SOFT TISSUES: No soft tissue swelling. No foreign body. OTHER: No other significant finding. IMPRESSION: No evidence of acute injury. Is there history of a prior injury to the extensor tendons in the 5th digit? TECHNICAL DOCUMENTATION: JOB ID: [id number] [employer]- All Rights Reserved Reading location - IP/workstation name: [email or web address]
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
--- NOTE | 2018-06-09 20:08 | RADIOLOGY REPORT (SQ) ---
EXAM DESCRIPTION: MR UPPER EXTREMITY JOINT WITHOUT IV CONTRAST COMPLETED DATE/TME: 06/09/2018 00:00 CLINICAL HISTORY: 57 years, Male, Right wrist Gout? COMPARISON: Plain films of the right wrist 06/08/2018. TECHNIQUE: 350 Images stored on PACS. LIMITATIONS: None. FINDINGS: No radiographic evidence for bone marrow edema or fracture deformity. Bony spur formation with degenerative changes of the distal radial ulnar joint. A small amount of fluid in the joint space. There is also fluid associated with the distal radial carpal joint and bony spur formation as well. Degenerative cyst formation of the hamate bone and to a lesser degree the distal scaphoid. The triangular fibrocartilage complex appears grossly intact. The extensor and flexor ligaments of the wrist and visualized hand are intact. No periarticular erosive change to suggest gouty arthritis. Mild diffuse subcutaneous edema and inflammation. A more discrete/defined cystic structure along the palmar aspect of the ulnar styloid measuring 1.0 x 0.4 x 0.7 cm may reflect small ganglion cyst.. IMPRESSION: No MR evidence for gouty arthritis. 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 Mild diffuse subcutaneous edema and inflammation is also noted. Possible small ganglion cyst, as above.. copyright 2010 [employer]- All Rights Reserved
[2018-06-10] MEDS: VANCOMYCIN HCL 1,250 MG in DEXTROSE 5%-WATER 250 ML IV SCH ×2 (00:19→09:30)
[2018-06-10] MEDS ORDERED: CEFTRIAXONE 2 GM/D5W RTU 2 GM/50 ML RTUPB IV ONE (00:53)
[2018-06-10] MEDS: CEFTRIAXONE 2 GM/D5W RTU 2 GM/50 ML RTUPB IV SCH (02:17)
[2018-06-10] MEDS: MORPHINE SULFATE 10 MG/ML INJ IV PRN ×4 (05:34→19:30)
[2018-06-10] MEDS: IBUPROFEN 800 MG in NORMAL SALINE 250 ML IV SCH ×3 (05:34→21:48)
[2018-06-10] MEDS ORDERED: RINGERS SOLUTION,LACTATED 1,000 ML IV PRN (17:41)
[2018-06-10 22:08] LABS: VANCOMYCIN,TROUGH 15.5 ug/mL (5.0-20.0)
[2018-06-11] MEDS: VANCOMYCIN HCL 1,250 MG in DEXTROSE 5%-WATER 250 ML IV SCH ×3 (00:29→21:50)
[2018-06-11] MEDS: CEFTRIAXONE 2 GM/D5W RTU 2 GM/50 ML RTUPB IV SCH ×2 (02:27→21:13)
[2018-06-11] MEDS: MORPHINE SULFATE 10 MG/ML INJ IV PRN ×5 (02:43→22:47)
[2018-06-11] MEDS: IBUPROFEN 800 MG in NORMAL SALINE 250 ML IV SCH (06:10)
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
[2018-06-11 20:28] LABS: HEMATOCRIT 36.8 % (37.9-51.0); MEAN CORPUSCULAR HEMOGLOBIN 33.2 pg (27.0-33.4); MEAN CORPUSCULAR HGB CONC 34.6 g/dL (32.0-36.0); MEAN CORPUSCULAR VOLUME 96 fl (80-97); PLATELET COUNT 396 10^3/uL (150-450); RED BLOOD COUNT 3.83 10^6/uL (4.35-5.55); RED CELL DISTRIBUTION WIDTH 12.3 % (11.5-14.0); WHITE BLOOD COUNT 7.4 10^3/uL (4.0-10.5)
[2018-06-11 20:55] LABS: HEMOGLOBIN 12.7 g/dL (13.5-17.0)
[2018-06-11 20:58] LABS: ABSOLUTE LYMPHOCYTES# (MANUAL) 1.7 10^3/uL (0.5-4.7); ABSOLUTE MONOCYTES # (MANUAL) 0.1 10^3/uL (0.1-1.4); ABSOLUTE NEUTROPHILS# (MANUAL) 5.3 10^3/uL (1.7-8.2); BASOPHILS % (MANUAL) 1 % (0-2); EOSINOPHILS % (MANUAL) 2 % (0-6); LYMPHOCYTES % (MANUAL) 23 % (13-45); MONOCYTES % (MANUAL) 2 % (3-13); SEGMENTED NEUTROPHILS % (MAN) 72 % (42-78); TOTAL CELLS COUNTED 100
[2018-06-11 21:00] LABS: BURR CELLS SLIGHT; OVALOCYTES 1+; PLATELET COMMENT ADEQUATE; POIKILOCYTOSIS SLIGHT; TOXIC GRANULATION 1+; TOXIC VACUOLATION PRESENT
[2018-06-12] MEDS: MORPHINE SULFATE 10 MG/ML INJ IV PRN ×3 (05:25→21:26)
--- NOTE | 2018-06-12 07:24 | EKG REPORT ---
SEVERITY:- BORDERLINE ECG - SINUS RHYTHM PROBABLE LEFT ATRIAL ABNORMALITY : Confirmed by: Pari Teresa MD 12-Jun-2018 07:23:36
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
[2018-06-12] MEDS: RINGERS SOLUTION,LACTATED 1,000 ML IV PRN ×2 (08:31→17:24)
[2018-06-12] MEDS: VANCOMYCIN HCL 1,250 MG in DEXTROSE 5%-WATER 250 ML IV SCH ×2 (10:06→22:03)
[2018-06-12 13:49] LABS: ABSOLUTE EOSINOPHILS # (AUTO) 0.4 10^3/uL (0.0-0.6); ABSOLUTE MONOCYTES (AUTO) 0.5 10^3/uL (0.1-1.4); ABSOLUTE NEUT (AUTO) 3.1 10^3/uL (1.7-8.2); BASOPHILS % (AUTO) 0.9 % (0-2); EOSINOPHILS % (AUTO) 7.5 % (0-6); HEMATOCRIT 34.2 % (37.9-51.0); HEMOGLOBIN 11.9 g/dL (13.5-17.0); MEAN CORPUSCULAR HEMOGLOBIN 32.7 pg (27.0-33.4); MEAN CORPUSCULAR HGB CONC 34.8 g/dL (32.0-36.0); MEAN CORPUSCULAR VOLUME 94 fl (80-97); MONOCYTES % (AUTO) 9.9 % (3-13); PLATELET COUNT 367 10^3/uL (150-450); RED BLOOD COUNT 3.65 10^6/uL (4.35-5.55); RED CELL DISTRIBUTION WIDTH 12.3 % (11.5-14.0); SEGMENTED NEUTROPHILS % (AUTO) 61.7 % (42-78); TOTAL CELLS COUNTED % (AUTO) 100 %; WHITE BLOOD COUNT 4.9 10^3/uL (4.0-10.5)
[2018-06-12] MEDS ORDERED: FENTANYL CITRATE INJ/PF 100 MCG/2 ML AMPUL ONE (18:09)
[2018-06-12] MEDS ORDERED: ONDANSETRON HCL INJ/PF 4 MG/2 ML SDV ONE (18:09)
[2018-06-12] MEDS ORDERED: ACETAMINOPHEN 1,000 MG/100 ML RTUPB IV ONE (18:09)
[2018-06-12] MEDS ORDERED: PROPOFOL INJ 200 MG/20 ML VIAL IV ONE (18:09)
[2018-06-12] MEDS ORDERED: MIDAZOLAM 2 MG/2 ML INJ ONE (18:09)
[2018-06-12] MEDS ORDERED: BUPIVACAINE HCL 0.5 % INJ/PF 30 ML SDV ONE (18:13)
[2018-06-12] MEDS ORDERED: PROMETHAZINE HCL INJ 25 MG/1 ML VIAL IV PRN (18:36)
[2018-06-12] MEDS ORDERED: MORPHINE SULFATE 10 MG/ML INJ IV PRN (18:36)
[2018-06-12] MEDS ORDERED: DIPHENHYDRAMINE HCL 50 MG/ML VIAL IV PRN (18:36)
[2018-06-12] MEDS ORDERED: FENTANYL CITRATE INJ/PF 100 MCG/2 ML AMPUL IV PRN ×3 (18:36)
[2018-06-12] MEDS ORDERED: MEPERIDINE HCL/PF INJ 25 MG/1 ML DISP.SYRIN IV PRN (18:36)
--- NOTE | 2018-06-12 19:20 | Operative Report ---
Operative Report PREOPERATIVE DIAGNOSIS: Right wrist pain/effusion POSTOPERATIVE DIAGNOSIS: Right wrist synovitis, gouty arthropathy OPERATION: Arthroscopic debridement right wrist with partial synovectomy SURGEON: TIAGO DUVAL ANESTHESIA: GA COMPLICATIONS: None ESTIMATED BLOOD LOSS: Minimal PROCEDURE: Indication for above procedure: 57-year-old male with long-standing history of gout presents emergency room initially with pain and swelling of his wrist. He continued to have discomfort he then returned to the emergency room with similar symptoms he was then adm itted to the orthopedic service. Sed rate and CRP demonstrated elevation. MRI was performed demonstrating no evidence of gouty arthropathy however there was mild intra-articular effusion. Repeat sed rate and CRP values demonstrate improvement however patient continued to have discomfort despite anti- inflammatories and antibiotics. Given patient's persistent discomfort septic arthritis versus inflammatory arthropathy remain within the differential diagnosis and thus decision was made to proceed with surgical arthroscopy of the right wrist. Risks and benefits were explained patient verbalized understanding consented for the procedure. Procedure In Detail: Patient was seen and evaluated in the preoperative holding area. The RIGHT upper extremity was initialized and marked. Patient receiving scheduled antibiotics patient was taken back to the operative room where transferred to the operative table and placed under general anesthesia. Once they were adequately anesthetized a nonsterile tourniquet was placed on the upper extremity. A surgical team debriefing was performed ensuring all instrumentation was available, the surgical procedure was discussed with possible concerns reviewed. The upper extremity was prepped with chlorhexidine and alcohol and draped in a sterile fashion. Patient was placed in the [employer] wrist distraction system. A timeout was done identifying correct patient, procedure and extremity everyone in attendance agree with this and verbalized no concerns. The extremity was exsanguinated the tourniquet was inflated to 250 mmHg. A 3-4 portal was established and the arthroscope introduced into the radiocarpal joint. Via triangulation a 4-5 portal was established. Diagnostic arthroscopy demonstrated no evidence of purulence. Mild effusion. There was evidence of gouty crystals along the volar wrist ligaments. Degeneration of the radiocarpal joint was noted. Disposition of the gouty crystals on the scapholunate ligament no full-thickness tear appreciated. No evidence of TFCC pathology. There was evidence of synovitis along the prestyloid recess. The wrist joint was debrided with a arthroscopic shaver. Partial synovectomy was performed as well. Fluid was sent for cultures and crystal sent to pathology for further evaluation. 1 L of saline was utilized for irrigation. 10 cc of 0.5% bupivacaine with epinephrine was injected for postoperative pain control. Skin incision was closed with interrupted 3-0 nylon suture. Patient was placed in a well-padded volar splint. Sponge counts, instrument counts, needle counts were correct. Patient was then awoken from anesthesia. Transferred from the operating room table to the operating room stretcher. There was no intraoperative complications patient tolerated procedure well stable to PACU. Postoperative plan: Patient will be continued on IV antibiotics and anti-inflammatories anticipate discharge likely in in 24 hours. Patient will require follow-up with primary care physician for prophylactic gout treatment.
[2018-06-12] MEDS: CEFTRIAXONE 2 GM/D5W RTU 2 GM/50 ML RTUPB IV SCH (21:13)
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
[2018-06-13] MEDS: MORPHINE SULFATE 10 MG/ML INJ IV PRN (07:39)
[2018-06-13 07:54] VITALS: BP 125/74
== END 2018-06-13 09:10 | disposition home or self-care (01) | DRG 513 ==
LOC: ER 18:18 → EH 22:41 → OBSVTOIN 22:41 → INTOOBSV 22:41 → UNDOADMOB 22:41 → 4W 06-09 08:38 → EH 06-09 08:38
PROVIDERS: ADMIT Orthopaedic Surgery; ATTEND Orthopaedic Surgery
PROC: 0RBN4ZZ Excision of Right Wrist Joint, Percutaneous Endoscopic Approach (ICD-10-PCS; principal; 2018-06-12 17:00)
DX: M10.031 Idiopathic gout, right wrist (principal); M00.9 Pyogenic arthritis, unspecified; M25.431 Effusion, right wrist; I10 Essential (primary) hypertension; E78.5 Hyperlipidemia, unspecified; Z81.1 Family history of alcohol abuse and dependence; Z87.891 Personal history of nicotine dependence; Z91.048 Other nonmedicinal substance allergy status
CPT/HCPCS: 01830; 36415; 80048; 80202; 84132; 84550; 85025; 85652; 86140; 87040; 87070; 87205; 88305; 93005; 93010; 96365; 96367; 99284; J0131; J0696; J1741; J2250; J2270; J2405; J2704; J3010; J3370; J3490; J7050; J7060; J7120; S0119